=== PATIENT | male | born 1995 | race Caucasian/White ===

== ENCOUNTER 2022-04-23 19:10 | Emergency (ER) | payer OTHER ==
[~2022-04-23] VITALS: Ht 182.9 cm; Wt 117.9 kg
[2022-04-23] MEDS ORDERED: KEPPRA500 MG PO (19:18)
[2022-04-23] MEDS ORDERED: CAPSAICIN HOT1 EACH TOP (19:19)
[2022-04-23] MEDS ORDERED: HYDROXYZINE HCL10 MG PO (19:19)
[2022-04-23] MEDS ORDERED: CYMBALTA30 MG PO (19:20)
== END 2022-04-23 21:41 | disposition home or self-care (01) ==
LOC: ED 19:10
DX: G40.909 Epilepsy, unspecified, not intractable, without status epilepticus (principal); S00.03XA Contusion of scalp, initial encounter; M25.562 Pain in left knee; Y04.2XXA Assault by strike against or bumped into by another person, initial encounter
CPT/HCPCS: 36415; 70450; 73560; 80053; 85025; 99284-25